=== PATIENT | female | born 1980 | race Caucasian/White ===

== ENCOUNTER 2017-06-17 18:56 | Emergency (ER) | payer MEDICAID, OTHER ==
[~2017-06-17] VITALS: Ht 170.2 cm; Wt 104.0 kg
[2017-06-17 19:24] VITALS: Ht 170.2 cm; Wt 104.0 kg
[2017-06-17] MEDS ORDERED: morphine 4 MG/ML VIAL IV STA (21:43)
[2017-06-17] MEDS ORDERED: SOD CHLORIDE 0.9% 1,000 ML IV STA (21:43)
[2017-06-17] MEDS ORDERED: ONDANSETRON 4 MG INJ IV STA (21:43)
[2017-06-17] MEDS ORDERED: IBUP800T25 PO (23:16)
[2017-06-17] MEDS ORDERED: MULTI PO (23:16)
[2017-06-17] MEDS ORDERED: HYDR-902 PO (23:58)
[2017-06-17] MEDS ORDERED: ONDA4TAB14 PO (23:58)
--- NOTE | 2017-06-18 00:04 | ERD ---
ER Documentation Chief Complaint Chief Complaint BIB SELF, CC: ABDOMINAL PAIN X 3 DAYS, AND VOMITING, ABD. HERNIA HPI Patient is a 37-year-old female with no medical problems who presents with abdominal pain. The patient has had abdominal pain for the past 3 months. The pain comes and goes. It is diffuse. She has vomiting and diarrhea as well. She denies fevers. She has had no treatment as of yet. She goes to a local clinic for her care. Upon review of old medical records the patient one previous visit to the ER in 2013. ROS All systems reviewed and are negative except as per history of present illness. Medications Home Meds Active Scripts Ondansetron (Ondansetron Odt) 4 Mg Tab.rapdis, 4 MG PO Q6H Y for NAUSEA AND/OR VOMITING, #10 TAB Prov:MICHELLE VELEZ MD 06/17/17 Hydrocodone/Acetaminophen ([place] 10-325 Tablet) 1 Each Tablet, 1 TAB PO Q6H Y for PAIN, #7 TAB Prov:MICHELLE VELEZ MD 06/17/17 Reported Medications Multivitamins* (Theragran*) 1 Tab Tab, 1 TAB PO DAILY, TAB 06/17/17 Ibuprofen* (Ibuprofen*) 800 Mg Tab, 800 MG PO Q6H Y for PAIN, TAB 06/17/17 Allergies Allergies: Coded Allergies: No Known Allergy (Unverified , 06/17/17) PMhx/Soc Medical and Surgical Hx: pt denies Medical Hx History of Surgery: Yes (C/SECTION X 3, hernia repair) Anesthesia Reaction: No Hx Neurological Disorder: No Hx Respiratory Disorders: No Hx Cardiac Disorders: No Hx Psychiatric Problems: No Hx Miscellaneous Medical Probl: No Hx Alcohol Use: No Hx Substance Use: No Hx Tobacco Use: No Smoking Status: Never smoker FmHx Family History: No diabetes Physical Exam Vitals Vital Signs Date Time Temp Pulse Resp B/P Pulse Ox O2 Delivery O2 Flow Rate FiO2 06/17/17 22:35 96 18 135/72 98 Room Air 06/17/17 19:24 99.8 104 18 188/107 100 Physical Exam Const: Moderate distress secondary to pain Head: Atraumatic Eyes: Normal Conjunctiva ENT: Normal External Ears, Nose and Mouth. Neck: Full range of motion..~ No meningismus. Resp: Clear to auscultation bilaterally Cardio: Regular rate and rhythm, no murmurs Abd: Soft, tenderness to palpation without rebound or guarding Skin: No petechiae or rashes Back: No midline or flank tenderness Ext: No cyanosis, or edema Neur: Awake and alert Psych: Normal Mood and Affect Result Diagram: 06/17/17223906/17/172239 Results 24 hrs Laboratory Tests Test 06/17/17 22:40 06/17/17 22:58 White Blood Count 15.510^3/ul Red Blood Count 4.3610^6/ul Hemoglobin 12.1g/dl Hematocrit 37.0% Mean Corpuscular Volume 84.9fl Mean Corpuscular Hemoglobin 27.8pg Mean Corpuscular Hemoglobin Concent 32.7g/dl Red Cell Distribution Width 12.9% Platelet Count 14494^3/UL Mean Platelet Volume 11.1fl Neutrophils % 88.8% Lymphocytes % 7.7% Monocytes % 2.6% Eosinophils % 0.1% Basophils % 0.3% Nucleated Red Blood Cells % 0.0/100WBC Neutrophils # 13.810^3/ul Lymphocytes # 1.210^3/ul Monocytes # 0.410^3/ul Eosinophils # 0.010^3/ul Basophils # 0.010^3/ul Nucleated Red Blood Cells # 0.010^3/ul Sodium Level 140mmol/L Potassium Level 4.4mmol/L Chloride Level 105mmol/L Carbon Dioxide Level 25mmol/L Anion Gap 14 Blood Urea Nitrogen 16mg/dl Creatinine 0.50mg/dl Glucose Level 135mg/dl Calcium Level 9.0mg/dl Total Bilirubin 0.2mg/dl Direct Bilirubin 0.00mg/dl Indirect Bilirubin 0.2mg/dl Aspartate Amino Transf (AST/SGOT) 18IU/L Alanine Aminotransferase (ALT/SGPT) 28IU/L Alkaline Phosphatase 50IU/L Total Protein 7.9g/dl Albumin 4.2g/dl Globulin 3.70g/dl Albumin/Globulin Ratio 1.13 Lipase 47U/L Urine Color YELLOW Urine Clarity CLOUDY Urine pH 6.0 Urine Specific [place] 1.030 Urine Ketones 2+mg/dL Urine Nitrite NEGATIVEmg/dL Urine Bilirubin NEGATIVEmg/dL Urine Urobilinogen NEGATIVEmg/dL Urine Leukocyte Esterase NEGATIVELeu/ul Urine Microscopic RBC 2/HPF Urine Microscopic WBC 2/HPF Urine Squamous Epithelial Cells MANY/HPF Urine Bacteria FEW/HPF Urine Mucus FEW/HPF Urine Hemoglobin NEGATIVEmg/dL Urine Glucose NEGATIVEmg/dL Urine Total Protein 2+mg/dl Current Medications Medications (Trade) Dose Ordered Sig/Luz Maria Route PRN Reason Start Time Stop Time Status Last Admin Dose Admin Sodium Chloride (NS) 1,000 ml @ 1,000 mls/hr Q1H STAT IV 06/17/17 21:43 06/17/17 22:42 DC 06/17/17 22:45 Morphine Sulfate (morphine) 4 mg ONCE STAT IV 06/17/17 21:43 06/17/17 21:45 DC 06/17/17 22:45 Ondansetron HCl (Zofran Inj) 4 mg ONCE STAT IV 06/17/17 21:43 06/17/17 21:45 DC 06/17/17 22:40 Procedures/MDM CT abdomen and pelvis pending radiology read at this time. Patient is a 37-year-old female with previous hernia who presents with abdominal pain. Laboratory studies were basically normal. Patient has a CT scan to rule out bowel obstruction or other serious intra-abdominal etiology. At this point I doubt appendicitis, cholecystitis, pancreatitis, or bowel obstruction. The patient will be discharged home if his CT scan is normal and the patient will be given up for [place] and Zofran. The patient went to follow- up closely with the primary doctor within 24 hours for reevaluation. Departure Diagnosis: Primary Impression: Hernia Additional Impression: Abdominal pain Abdominal location: generalized Qualified Code: R10.84 - Generalized abdominal pain Condition: Fair Patient Instructions: Abdominal Pain, Hernia (Inguinal, Ventral, Umbilical) Referrals: Your doctor Additional Instructions: Llame al doctor MAANA y lindsey donny YOHAN PARA DENTRO DE 1-2 MCGEE.Dgale a la secretaria que nosotros le instruimos hacer esta yohan.Avise o llame si santana condicin se empeora antes de la yohan. Regresa aqui si peor o no mejor. MICHELLE VELEZ MD Jun 18, 2017 00:04
--- NOTE | 2017-06-18 00:09 | RADRPT ---
PROCEDURE: CT Abdomen and pelvis without contrast. CLINICAL INDICATION: Abdominal pain. TECHNIQUE: CT scan of the abdomen and pelvis was performed on a multi-detector high-resolution CT scanner. Contiguous axial images were obtained from the lung bases to the ischial tuberosities wit hout intravenous contrast. Coronal and sagittal reformatted images were also obtained. Images were reviewed on the PACS workstation. One or more of the following dose reduction techniques were used: - Automated exposure control. - Adjustment of the mA and/or kV according to patient size. - Use of iterative reconstruction technique. Exam CTD/vol = 22.72 mGy. Total exam DLP = 1430.05 mGy-cm. COMPARISON: None. FINDINGS: Evaluation of the lung bases demonstrates no pleural or parenchymal disease. Abdomen: The liver is normal in size. There is no focal mass or dilatation of the biliary tree. T he gallbladder is not distended. The spleen, pancreas and bilateral adrenal glands are within [place] l limits. Bilateral kidneys are normal in size with no contour deforming mass identified. There is no radiopaque renal or ureteral calculus identified. There is no hydronephrosis or hydroureter. T here is no retroperitoneal adenopathy. The abdominal aorta is of normal caliber with mild scattered atherosclerotic calcifications. There is a moderate lower abdominal ventral midline hernia containing loops of small bowel and oment al fat. There is no bowel obstruction or free air. A normal appendix is identified. There is no d iverticulosis or diverticulitis. There is no ascites. Pelvis: The bladder is unremarkable. The uterus is unremarkable. There is a left ovarian cyst ana suring 3.0 x 2.4 cm. There is no significant pelvic adenopathy or free fluid. Evaluation of the osseous structures demonstrates no suspicious lytic or blastic lesion. IMPRESSION: Moderate lower abdominal ventral midline hernia containing loops of small bowel and omental fat. The re is no bowel obstruction. Left ovarian 3.0 cm cyst. Mild vascular calcifications reflective of atherosclerosis. .Haresh Friedman MD, MD Date Time Electronically viewed and signed by .Haresh Friedman MD, on 06/18/2017 00:08 .T/
[2017-06-18 00:45] VITALS: BP 123/71; PULSE 81; RESP 16; TEMP 98.4
== END 2017-06-18 01:15 | disposition home or self-care (01) ==
LOC: E/R 18:56
DX: K46.9 Unspecified abdominal hernia without obstruction or gangrene (principal)
CPT/HCPCS: 36415; 74176; 80053; 81001; 83690; 85025; 96374; 96375; J2270; J2405; J7030; Z7502

== ENCOUNTER 2018-03-07 05:25 | Inpatient (IN) | END 2018-03-07 11:49 | disposition home or self-care (01) | DRG 394 ==